=== PATIENT | male | born 1960 | race Caucasian/White ===

== ENCOUNTER 2019-05-29 23:19 | Inpatient (IN) ==
[2019-05-30 00:52] LABS: BASO# 0.03 X1000 (0.0-0.2); BASO% 0.6 % (0.0-0.8); EOS# 0.08 X1000 (0.0-0.7); EOS% 1.6 % (0.0-10.0); HEMATOCRIT 32.1 % (42.0-52.0); HEMOGLOBIN 10.6 g/dL (14.0-18.0); IMM GRAN# 0.05 X1000 (0.0-0.04); LYMPH# 0.73 X1000 (1.2-3.4); LYMPH% 14.2 % (20.5-51.1); MCH 28.2 PG (27-31); MCV 85.4 FL (81-99); MONO# 0.55 X1000 (0.11-0.59); MONO% 10.7 % (1.7-9.3); MPV 10.3 FL (7.4-10.4); NEUT# 3.71 X1000 (1.4-6.5); NEUT% 71.9 % (42.2-75.2); PLT 96 X1000 (130-400); RBC 3.76 XMIL (4.7-6.1); RDW 18.5 % (11.5-14.5); WBC 5.15 X1000 (4.8-10.8)
[2019-05-30 01:31] LABS: BILIRUBIN URINE NEGATIVE (NEGATIVE); BLOOD URINE NEGATIVE (NEGATIVE); CLARITY CLEAR (CLEAR); COLOR YELLOW; KETONE URINE NEGATIVE (NEGATIVE); LEUKOCYTES URINE NEGATIVE (NEGATIVE); NITRITE URINE NEGATIVE (NEGATIVE); PROTEIN URINE NEGATIVE (NEGATIVE); SP GRAVITY URINE 1.005; UROBILINOGEN URINE 8 mg/dL
[2019-05-30 01:34] LABS: URINE BACTERIA 4+ /HFP; URINE WBC <10 /HPF (<10)
[2019-05-30 01:35] LABS: URINE CAST NONE SEEN /LPF; URINE SOURCE CLEAN CATCH; URINE YEAST NONE SEEN /HPF
[2019-05-30 01:57] LABS: ESTIMATED GFR > 60
[2019-05-30 02:03] LABS: AGAP 11; ALBUMIN 3.2 g/dL (3.5-5.0); ALKALINE PHOSPHATASE 157 U/L (32-122); BUN 5 mg/dL (8-22); CALCIUM 8.9 mg/dL (8.8-10.2); CHLORIDE 94 mmol/L (98-107); COSMO 292; CREATININE 0.7 mg/dL (0.7-1.2); GLUCOSE 567 mg/dL (70-104); GOT 20 U/L (10-34); GPT 11 U/L (10-44); LIPASE 31 U/L (13-60); POTASSIUM 3.2 mmol/L (3.5-5.1); SODIUM 134 mmol/L (136-145); TCO2 29 mmol/L (25-35); TOTAL PROTEIN 7.5 g/dL (6.3-8.3)
[2019-05-30] MEDS ORDERED: ROCEPHIN 1 GM in NS 50 ML IV ONE (02:06)
[2019-05-30] MEDS ORDERED: NS 1,000 ML IV ONE ×3 (02:06→04:02)
[2019-05-30] MEDS ORDERED: HUMULIN R (PARKWAY) SUBQ ONE (02:06)
[2019-05-30] MEDS ORDERED: POTASSIUM CHLORIDE 10% LIQUID PO PRN (02:20)
[2019-05-30] MEDS ORDERED: POTASSIUM CHLORIDE 20 MEQ/SWI 20 MEQ/100 ML IVPB IV PRN (02:20)
[2019-05-30] MEDS ORDERED: POTASSIUM CHLORIDE 20% LIQUID PO PRN (02:20)
[2019-05-30] MEDS ORDERED: POTASSIUM CHLORIDE 40 MEQ/SWI 40 MEQ/100 ML IVPB IV PRN (02:20)
[2019-05-30] MEDS ORDERED: D50W SYRINGE IV PRN ×2 (02:20)
[2019-05-30] MEDS ORDERED: HUMULIN R 100 UNIT in NS 100 ML IV SCH (02:30)
[2019-05-30] MEDS ORDERED: NS 1,000 ML IV SCH (02:30)
[2019-05-30 03:00] LABS: BE 10.7 mmoll (-2.0-2.0); BLOOD TYPE VENOUS; PCO2(98.6) 49 mmHg (40-60); PO2(98.6) 17 mmHg (30-55); SAMPLE BLOOD; SAO2 30.4 % (40.0-85.0); pH(98.6) 7.47 (7.32-7.43)
[2019-05-30] MEDS ORDERED: ZOSYN 4.5 GM in NS 100 ML IV ONE (03:59)
--- NOTE | 2019-05-30 03:59 | PROVIDER DOCUMENTATION ---
This chart was entered by Abby Fleming Scribe, acting as scribe for Teena Jiménez MD. HPI-Abdominal Pain/GI Problem - General Chief Complaint: Abdominal Pain Stated Complaint: appendicitis PAIN Time Seen by Provider: 05/30/19 00:32 Source: patient Allergies/Adverse Reactions: Patient Allergies Allergy/AdvReac Type Severity Reaction Status Date / Time ammonia Allergy Intermediate SHORTNESS Verified 07/14/17 11:28 OF BREATH morphine Allergy Intermediate Unknown Verified 11/16/14 16:33 diazepam [From Valium] AdvReac Intermediate Unknown Verified 11/16/14 16:33 Home Medications: Home Medication List Medication Instructions Recorded Confirmed Last Taken Type Ferrous Sulfate [Iron] 325 mg PO DAILY 05/30/19 05/30/19 05/29/19 History Gabapentin 300 mg PO TID 05/30/19 05/30/19 05/29/19 History - History of Present Illness-ABD Nature of Presenting Problems: Pt is a 58 yom who presents to the ED with a complaint of abdominal pain. Pt reports that he was sitting in his chair watching tv when the pain occurred. pt states that the pain began at 6:00pm. Pt reports taking ibuprofen to relieve pain. Pt denies nausea, vomiting, and diarrhea. Pt reports chills. Abdominal Pain Onset Location: reports: RLQ Pain Radiation: reports: no radiation Quality of Pain: reports: throbbing Onset/Duration: reports: 4-6 hours ago Timing: reports: still present, changing over time Activities at Onset: reports: none Exposure to sick contacts?: No Modifying Factors: improves with: nothing Associated Symptoms: reports: denies symptoms Last BM: unsure Dark Stools Present?: reports: none noticed Rectal Bleeding: reports: none Rectal Pain: reports: none Emesis Description: reports: none Bruising or Bleeding Gums?: No Similar Symptoms Previously?: No Recently seen or treated by another doctor?: Yes Review of Systems - Adult - REVIEW OF SYSTEMS - ADULT Constitutional: reports: chills Eyes: reports: no symptoms reported Ears, Nose, Mouth & Throat: reports: no symptoms reported Cardiovascular: reports: no symptoms reported Respiratory: reports: no symptoms reported Gastrointestinal: reports: see HPI, abdominal pain (RLQ) Genitourinary: reports: no symptoms reported Musculoskeletal: reports: no symptoms reported Integumentary: reports: no symptoms reported Neurological: reports: no symptoms reported Psychiatric: reports: no symptoms reported Endocrine: reports: no symptoms reported Hematologic/Lymphatic: reports: no symptoms reported Allergic/Immunologic: reports: no symptoms reported All Other Systems: Reviewed and Negative Past History - Adult - PAST MEDICAL HISTORY-ADULT Review of Records: reports: Old Records Reviewed, Nursing Assessment Review, Medications Reviewed, Social history reviewed & non-contributory. Major Childhood Illnesses: reports: denies history Cardiovascular: reports: HTN Respiratory: reports: COPD Gastrointestinal: reports: hepatitis (b), liver disease (cirrhosis) Obstetrical/Gynecological: reports: denies history Genitourinary: reports: denies history Musculoskeletal: reports: chronic pain (back) Neurological: reports: denies history Endocrine/Immune: reports: Diabetes Other Conditions: reports: denies history - PRIOR SURGERIES/PROCEDURES Surgical/Procedure History: reports: orthopedic (extremity), back/neck - IMMUNIZATION STATUS Childhood Immunizations: See Nurse Assessment Flu Vaccine: See Nurse Assessment - FAMILY HISTORY Family History: reviewed, not pertinent - SOCIAL HISTORY Smoking: cigarettes, greater than 1 pack/day Provider spent 3-5 mins advising pt. on dangers of tobacco.: Discussed manners to quit use, and f/u contacts for add'l counseling. Substance Use: denies Alcohol Use Frequency: never Living Situation: family Physical Exam-General - PHYSICAL EXAM-ADULT Initial Vital Signs Reviewed: Yes - CONSTITUTIONAL General Appearance: appears well, alert, no apparent distress - EYES Eyes: PERRL/EOMI. negative: sclera injected, scleral icterus - HEAD, EARS, NOSE, MOUTH & THROAT HENMT: normocephalic/atraumatic, moist mucous membranes - NECK Neck: non-tender, full range of motion, supple - RESPIRATORY Respiratory: chest non-tender, lungs clear, normal breath sounds - CARDIOVASCULAR Cardiovascular: normal peripheral pulses, regular rate, rhythm. negative: bradycardia, tachycardia - GASTROINTESTINAL (ABDOMEN) Abdominal Exam: normal bowel sounds, non tender, soft, tenderness (RLQ) - LYMPHATIC Lymphatic: no adenopathy - MUSCULOSKELETAL Back Exam: normal inspection, no CVA tenderness Extremity: normal range of motion, non-tender, normal inspection - SKIN Integumentary: normal color, normal turgor, warm/dry. negative: ecchymosis, erythema - NEUROLOGIC Neurologic: grossly normal - PSYCHIATRIC Psych/Mental Status: normal mood/affect, normal thought content, normal thought process, oriented x 3 Progress - PLAN OF CARE/RESULTS Progress/Plan/Lab Results: Vital Signs - 8 hr 05/29/19 23:38 Temperature 98.2 F Pulse Rate 86 Respiratory Rate 16 Blood Pressure 151/85 O2 Sat by Pulse Oximetry 99 Orders Category Date Time Status Saline Loc NOW Care 05/29/19 23:41 Active NPO Diet 05/29/19 23:41 Active CBC WITH DIFF [HEME] Stat Lab 05/30/19 00:20 Results COMPREHENSIVE METABOLIC PANEL [CHEM] Stat Lab 05/30/19 00:20 Received LIPASE [CHEM] Stat Lab 05/30/19 00:[address] W/POSS RFLX CULT [URINALYSIS] Stat Lab 05/30/19 00:18 Uncollected Abd Pain/OB <20 weeks Stat Oth 05/29/19 23:41 Ordered Result Diagrams: 05/30/19 00:20 05/30/19 00:20 - CT/MRI 1 CT Study: Abdomen, Pelvis Impression: Abnormal, See EMR Report - CONSULTS/PCP/HOSPITALIST Notification #1 *Consult/PCP/Hospitalist*: d/w Dr Guevara Time Discussed: 03:55 Consult Disposition: Admit (Advised to admit to hospitalist at [facility]) #2 Consult: d/w Dr Leiva Time Discussed: 04:02 Consult Disposition: Admit Departure - Departure Date of Disposition Decision: 05/30/19 Time of Disposition Decision: 03:58 DIAGNOSIS: Acute appendicitis, UTI (urinary tract infection), Uncontrolled diabetes mellitus, Cirrhosis of liver Disposition: ADMITTED INPATIENT 09 Certified Medical Emergency: Emergent Condition: Stable Referrals and Follow-Ups: None,PCP [Primary Care Provider] - - Critical Care Note This patient required my direct & personal management of CC.: No Attestation - Physician/ LEA Attestation Patient care was provided by Advanced Practice Provider:: No The physician spent face to face time with patient:: Yes Advanced Practice Provider documentation review:: Supervising physician onsite and consulted in the evaluation and care of this patient. The physician did have a face to face encounter with the patient. This chart was documented by the indicated scribe, (Abby Fleming Scribe) and accurately reflects the services I performed and decisions made by me, Teena Jiménez MD, as attested by the provider's signature.
[2019-05-30 04:34] LABS: UR AMPHETAMINES QUAL NONE DETECTED (NONE DETECT); UR BARBITUATES QUAL NONE DETECTED (NONE DETECT); UR BENZODIAZEPIN QUAL NONE DETECTED (NONE DETECT); UR CANNABINOIDS QUAL NONE DETECTED (NONE DETECT); UR COCAINE QUAL NONE DETECTED (NONE DETECT); UR METHADONE QUAL NONE DETECTED (NONE DETECT); UR METHAMPHETAMINE QUAL NONE DETECTED (NONE DETECT); UR OPIATES QUAL NONE DETECTED (NONE DETECT); UR OXYCODONE QUAL NONE DETECTED (NONE DETECT); UR PCP QUAL NONE DETECTED (NONE DETECT); UR PROPOXYPHENE QUAL NONE DETECTED (NONE DETECT); UR TCA QUAL NONE DETECTED (NONE DETECT)
[2019-05-30 05:01] LABS: AGAP 20; ALBUMIN 2.8 g/dL (3.5-5.0); ALKALINE PHOSPHATASE 133 U/L (32-122); BUN 5 mg/dL (8-22); CALCIUM 7.8 mg/dL (8.8-10.2); CHLORIDE 97 mmol/L (98-107); CK PROFILE 37 U/L (24-204); COSMO 297; CREATININE 0.4 mg/dL (0.7-1.2); ESTIMATED GFR > 60; GLUCOSE 365 mg/dL (70-104); GOT 31 U/L (10-34); GPT 9 U/L (10-44); MAGNESIUM 1.6 mg/dL (1.5-2.7); PHOSPHORUS 2.6 mg/dL (2.7-4.5); POTASSIUM 3.1 mmol/L (3.5-5.1); SODIUM 143 mmol/L (136-145); TCO2 27 mmol/L (25-35); TOTAL PROTEIN 6.3 g/dL (6.3-8.3)
[2019-05-30] MEDS ORDERED: ZOFRAN IV PRN (06:29)
--- NOTE | 2019-05-30 06:47 | Diag Imaging Result Doc PS360 ---
CT ABD/PELVIS W/IV CONT ONLY - 05/30/2019 INDICATION: RLQ tenderness COMPARISON: None FINDINGS: There is mild pulmonary fibrosis in the lung bases. Heart size is normal. There is severe triple-vessel coronary artery disease. There is a TIPS shunt in the liver. This is patent. The liver is somewhat atrophic. There is significant splenomegaly. The spleen measures 20 x 8.5 cm. There is significant dilation of the splenic vein, superior mesenteric vein, and main portal vein. This indicates portal venous hypertension. There is mild constipation throughout the colon. The appendix is top normal in size measuring up to 7.5 mm. There is normal-appearing contents within the appendix. There is nonspecific edema throughout the mesentery. There are a few cysts in the kidneys bilaterally. Urinary bladder, prostate, and rectum are normal. There are laminectomy and fusion changes in the lumbar spine at L5-S1. No acute bony lesions. IMPRESSION: 1. Borderline size of the appendix that is nonspecific. Doubtful to represent appendicitis. 2. Cirrhosis, portal hypertension, splenomegaly. 3. Constipation. This exam was performed using automated exposure control, adjustment of mA or kV according to patient size, and/or use of iterative reconstruction technique Electronically signed by Harshal Olea 05/30/2019 6:45 AM
--- NOTE | 2019-05-30 06:53 | HISTORY AND PHYSICAL ---
PRIMARY CARE PROVIDER: Unknown. CHIEF COMPLAINT: Abdominal pain, mostly in the right lower quadrant. HISTORY OF PRESENTING ILLNESS: A 58-year-old male with a history of diabetes mellitus type 2, cirrhosis, hepatitis B and C, who had presented to the emergency department with complaint of right lower quadrant abdominal pain for the past day or so. He initially was seen at [facility]. He had imaging done, which did show the possibility of appendicitis. His case was discussed with General Surgery, who recommended the patient be transferred to [facility] for further evaluation and management. At the time of my examination, the patient denied any headache, fever, chills, chest pain, shortness of breath, but complained of abdominal pain. PAST MEDICAL HISTORY: Includes diabetes mellitus type 2, cirrhosis, hepatitic B and C. PAST SURGICAL HISTORY: TIPS procedure, back surgery, left knee surgery. ALLERGIES: Ammonia, morphine, diazepam. CURRENT MEDICATIONS: He does not recall current medications. It shows that he is on ferrous sulfate 325 mg p.o. daily, and gabapentin 300 mg p.o. t.i.d. Other medications, nursing staff will reconcile. SOCIAL HISTORY: A 40+ pack-year history of smoking. Denies any history of alcohol or illicit drug use. FAMILY HISTORY: Positive for coronary disease in father. REVIEW OF SYSTEMS: A 14-point review of systems is as in HPI. Other systems negative. PHYSICAL EXAMINATION: GENERAL: Cooperative, friendly male. He is resting more comfortably now. VITAL SIGNS: Temperature 98 degrees, pulse 71, respirations 18, blood pressure 111/57. HEENT: Atraumatic, normocephalic. Extraocular movements intact. PERRLA. NECK: No masses. CHEST: Clear to auscultation. CARDIOVASCULAR: Regular rate and rhythm. ABDOMEN: Soft. Positive bowel sounds. Some mild lower quadrant tenderness. EXTREMITIES: No edema. NEUROLOGIC: He is awake, alert, oriented x3. GENITOURINARY: No bladder distention. SKIN: Warm. LABORATORIES AND STUDIES: WBC 5.15, hemoglobin 10.6, hematocrit 32.1, platelets 96,000. Sodium 143, potassium 3.1, chloride 97, CO2 is 27, BUN is 5, creatinine 0.4, glucose is 365. Urine nitrite negative. ASSESSMENT: A 58-year-old male who initially presented to [facility] with complaint of right lower quadrant abdominal pain. He was evaluated there. He had imaging done, which did show the possibility of acute appendicitis. His case was discussed with General Surgery, who recommended that the patient be transferred to [facility] for further evaluation and management. 1. Abdominal pain. 2. Suspected acute appendicitis. 3. Cirrhosis. 4. Hepatitis B and C. 5. Diabetes mellitus type 2 with hyperglycemia. 6. Mild hypokalemia. PLAN: 1. Will admit the patient to medical floor with telemetry. 2. Will keep the patient n.p.o. Continue with pain control. 3. General Surgery was already consulted. 4. Will obtain his records regarding his cirrhosis and hepatitis B and C. 5. Will put the patient on a sliding scale insulin regimen, and monitor blood glucose closely. 6. Will put the patient on DVT prophylaxis with SCDs. 7. Will continue to follow and reassess and make further recommendation based on the patient's clinical course. cc: Jason Leiva MD MTDD
[2019-05-30] MEDS: NS 1,000 ML IV SCH ×2 (07:06→20:57)
--- NOTE | 2019-05-30 08:11 | GENERAL SURGERY CONSULTATION ---
DATE: 05/30/2019 REQUESTING PHYSICIAN: Emergency Department. REASON FOR CONSULTATION: Possible appendicitis. HISTORY OF PRESENT ILLNESS: A 58-year-old gentleman with history of diabetes mellitus type 2, cirrhosis with hepatitis B and C, who complained of abdominal pain in the right lower quadrant, and seen in the emergency department. He had a CT scan that was very equivocal for appendicitis. He had no left shift. He has had significant medical issues with a history of TIPS procedure for cirrhosis. Given his equivocal findings and his medical comorbidities, I requested that the patient be transferred from [facility] where he was seen initially to [facility] to be admitted by the hospitalist service. He is still complaining of some degree of abdominal pain, but otherwise he is doing okay. PAST MEDICAL HISTORY: 1. Diabetes mellitus type 2. 2. Cirrhosis. 3. Hepatitis B. 4. Hepatitis C. PAST SURGICAL HISTORY: 1. TIPS procedure. 2. Back surgery. 3. Left knee surgery. ALLERGIES: Morphine and diazepam. CURRENT MEDICATIONS: Reviewed. SOCIAL HISTORY: Current smoker. FAMILY HISTORY: Positive for coronary artery disease. REVIEW OF SYSTEMS: Full 14 systems reviewed and negative except as specified in HPI. PHYSICAL EXAMINATION: Vital Signs: Patient is currently afebrile. Vital signs are stable. General: No acute distress. Alert and interactive male looks stated age. HEENT: Normocephalic, atraumatic. Pupils equal, round, and reactive to light. Mucous membranes moist. Oropharynx benign. Neck: Supple. Trachea midline. Cardiovascular: Regular rate and rhythm. Lungs: Grossly clear. Abdomen: Soft. There is only minimal discomfort in the right lower quadrant. No peritoneal signs. No guarding. Extremities: Moves all extremities. Neurologic: Grossly intact. Skin: No signs of jaundice. Vascular: All extremities perfused. LABORATORY: White blood count is normal. No left shift. Platelet count is 96,000. Bilirubin is 1.7. Albumin is 2.8. CT scan independently reviewed and radiology report reviewed as noted above. ASSESSMENT AND PLAN: A 58-year-old gentleman with abdominal pain. Abdominal pain. At this time, I do not suspect he has appendicitis. I think he would be prohibitively high risk for surgery given his cirrhosis and his TIPS procedure. He does not have a left shift. He does not have a leukocytosis so I have recommend right now to just monitor and put him on a clear liquid diet. I have given him IV antibiotics just in case. Otherwise, we will continue to follow him while he is in the hospital. I appreciate the consult. cc: Brock Guevara MD
[2019-05-30] MEDS: ZOSYN 3.375 GM in NS 50 ML IV SCH ×2 (10:25→16:03)
[2019-05-30] MEDS ORDERED: LANTUS INSULIN SUBQ ONE (10:52)
[2019-05-30 11:25] LABS: HEMOGLOBIN A1C 10.8 % (4.8-6.0)
--- NOTE | 2019-05-30 11:48 | EKG Report ---
Test Performed on : 05/30/2019 11:43:31 AM Test Reason : Baseline EKG. Triple vessel disease on CAT scan. Blood Pressure : / mmHG Vent. Rate : 065 BPM Atrial Rate : 065 BPM P-R Int : 222 ms QRS Dur : 100 ms QT Int : 460 ms P-R-T Axes : 050 049 112 degrees QTc Int : 478 ms Sinus rhythm. with 1st degree AV block. Possible Inferior infarct , age undetermined T wave abnormality, consider lateral ischemia Abnormal ECG When compared with ECG of 16-NOV-2014 22:09, FL interval has increased Borderline criteria for Inferior infarct are now present Non-specific change in ST segment in Anterior leads Confirmed by Rico RIVERA, Zbigniew Duval ([id number]) on 05/31/2019 8:59:39 AM
[2019-05-30] MEDS ORDERED: INSULIN PEN NEEDLES ONE (12:01)
--- NOTE | 2019-05-30 15:19 | PROGRESS NOTE ---
DATE: 05/30/2019 INTERVAL HISTORY: He was admitted for right lower quadrant pain. However, surgical team did not think he had appendicitis. He is on IV antibiotics. SUBJECTIVE: He is feeling better. He states his abdominal pain has almost resolved. He is denying any nausea or vomiting. He denies any abdominal pain, diarrhea or constipation at the moment. He denies known history of coronary artery disease. He states that he is only taking metformin at home for his diabetes. VITALS: Temperature 98.5 degrees, pulse respiratory 18, blood pressure 108/56. He is saturating 100% on room air. PHYSICAL EXAMINATION: General: Does not appear in acute distress. HEENT: Oral cavity is moist. Lungs: Air entry bilaterally equal. No wheeze, rhonchi, crackles. Cardiovascular: S1, S2 normal. No murmur or gallop. Abdomen: Soft. No tender. I could not really appreciate splenomegaly on my limited examination. Active bowel sounds. No rebound or rigidity. Extremity: No lower extremity edema. Neurologic: He is alert and oriented x3. LABS: Suggestive of no leukocytosis, normocytic anemia, chronic thrombocytopenia. ABG though it was a venous blood gas, it did not have any acidosis. His bicarbonate level was in fact elevated. Normal kidney function, hyperglycemia, uncontrolled diabetes. He has elevated total bilirubin. Urine glucose was positive. Acetone levels were unremarkable. Urine culture is pending. No new imaging. ASSESSMENT AND PLAN: 1. Right lower quadrant abdominal pain of unclear etiology, though he did have marked hyperglycemia with blood glucose of 567 on admission. He did not have all the features of diabetic ketoacidosis, which could contribute to abdominal cramps. I will continue intravenous antibiotics and surgical team is currently planning conservative management since the evidence of appendicitis is minimal. 2. Uncontrolled type 2 diabetes mellitus with hemoglobin A1c more than 10. He would likely need to be on insulin, now. Considering cost issues, I will start him on Humulin 70/30, and we will closely monitor his blood sugars. 3. History of chronic liver disease, cirrhosis status post TIPS. He has resultant elevated bilirubin and chronic thrombocytopenia. 4. Others: I will replete his potassium for hypokalemia and follow up with BMP tomorrow morning. I will resume his gabapentin for chronic pain. DISPOSITION: I will monitor patient inside the hospital for another day as I titrate his insulin as well as make sure he does not have recurrence of abdominal pain. Plan of care discussed with him. His questions were answered. cc: Jonnathan Ward MD
[2019-05-30] MEDS: HUMALOG SUBQ SCH ×2 (15:58→18:21)
[2019-05-30] MEDS: HUMULIN 70/30 SUBQ SCH (16:00)
[2019-05-30] MEDS: KLOR-CON PO SCH ×2 (16:01→18:13)
[2019-05-30] MEDS: NEURONTIN PO SCH ×2 (16:01→18:12)
[2019-05-30] MEDS: MIRALAX PO SCH (16:23)
[2019-05-30 16:25] LABS: AGAP 8; BUN 4 mg/dL (8-22); CALCIUM 7.2 mg/dL (8.8-10.2); CHLORIDE 101 mmol/L (98-107); COSMO 278; CREATININE 0.6 mg/dL (0.7-1.2); ESTIMATED GFR > 60; GLUCOSE 255 mg/dL (70-104); SODIUM 136 mmol/L (136-145); TCO2 27 mmol/L (25-35)
[2019-05-30] MEDS ORDERED: KLOR-CON PO SCH (17:30)
[2019-05-30] MEDS: MAGNESIUM SULFATE 2 GM/S.W.I. 2 GM/50 ML IVPB IV SCH (18:33)
[2019-05-30] MEDS ORDERED: KLOR-CON PO ONE (22:00)
[2019-05-31] MEDS: ZOSYN 3.375 GM in NS 50 ML IV SCH ×3 (00:34→10:15)
[2019-05-31] MEDS: HUMALOG SUBQ SCH ×3 (00:34→11:13)
[2019-05-31] MEDS: HUMULIN 70/30 SUBQ SCH ×2 (00:34→08:36)
[2019-05-31] MEDS: MAGNESIUM SULFATE 2 GM/S.W.I. 2 GM/50 ML IVPB IV SCH (00:35)
--- NOTE | 2019-05-31 06:28 | GENERAL SURGERY PROGRESS NOTE ---
DATE: 05/31/2019 SUBJECTIVE: Patient seems to be doing okay. No abdominal pain. OBJECTIVE: Vital Signs: Patient is currently afebrile. His vital signs are stable. General: No acute distress. HEENT: Normocephalic, atraumatic. Pupils equal, round, and reactive to light. Mucous membranes moist. Oropharynx benign. Neck: Supple. Trachea midline. Cardiovascular: Regular rate and rhythm. Lungs: Grossly clear. Abdomen: Soft, nontender, and nondistended. Extremities: Moves all extremities. Neurologic: Grossly intact. Skin: No signs of jaundice. Vascular: All extremities perfused. LABORATORY: None this morning as of yet. ASSESSMENT AND PLAN: A 58-year-old gentleman with cirrhosis with possible appendicitis. 1. Possible appendicitis. At this time, I do not think he has it. He has clinically done pretty well over the course of 24 hours from a surgical point of view. No immediate plans for surgical intervention. If okay with the hospitalist, he can likely be discharged. 2. Cirrhosis. At this time, he probably needs to follow up with the physician who is managing his cirrhosis. cc: Brock Guevara MD
[2019-05-31] MEDS: NS 1,000 ML IV SCH (06:47)
--- NOTE | 2019-05-31 07:20 | EKG Report ---
Test Performed on : 05/31/2019 06:53:36 AM Test Reason : Follow up TWI in lateral leads Blood Pressure : / mmHG Vent. Rate : 071 BPM Atrial Rate : 071 BPM P-R Int : 202 ms QRS Dur : 086 ms QT Int : 436 ms P-R-T Axes : 046 050 100 degrees QTc Int : 473 ms Normal sinus rhythm. Possible Inferior infarct (cited on or before 30-MAY-2019) Abnormal ECG When compared with ECG of 30-MAY-2019 11:43, (Unconfirmed) No significant change was found Confirmed by Zbigniew Gómez MD ([id number]) on 05/31/2019 9:01:02 AM
[2019-05-31 07:23] LABS: BASO# 0.01 X1000 (0.0-0.2); BASO% 0.3 % (0.0-0.8); EOS# 0.09 X1000 (0.0-0.7); EOS% 2.3 % (0.0-10.0); HEMATOCRIT 31.2 % (42.0-52.0); HEMOGLOBIN 9.7 g/dL (14.0-18.0); IMM GRAN# 0.02 X1000 (0.0-0.04); IMM GRAN% 0.5 % (0.0-0.5); LYMPH# 0.73 X1000 (1.2-3.4); LYMPH% 18.8 % (20.5-51.1); MCHC 31.1 g/dL (33-37); MCV 90.2 FL (81-99); MONO# 0.38 X1000 (0.11-0.59); MONO% 9.8 % (1.7-9.3); MPV 10.7 FL (7.4-10.4); NEUT# 2.66 X1000 (1.4-6.5); NEUT% 68.3 % (42.2-75.2); PLT 75 X1000 (130-400); RBC 3.46 XMIL (4.7-6.1); RDW 19.3 % (11.5-14.5); WBC 3.89 X1000 (4.8-10.8)
[2019-05-31 07:42] LABS: AGAP 8; BUN 5 mg/dL (8-22); CALCIUM 7.8 mg/dL (8.8-10.2); CHLORIDE 105 mmol/L (98-107); COSMO 282; CREATININE 0.7 mg/dL (0.7-1.2); ESTIMATED GFR > 60; GLUCOSE 231 mg/dL (70-104); POTASSIUM 4.2 mmol/L (3.5-5.1); SODIUM 139 mmol/L (136-145); TCO2 26 mmol/L (25-35)
[2019-05-31] MEDS: NEURONTIN PO SCH (08:35)
[2019-05-31] MEDS: MIRALAX PO SCH (08:35)
[2019-05-31] MEDS ORDERED: FERROUS SULFATE PO SCH (09:00)
[2019-05-31] MEDS ORDERED: LANTUS INSULIN SUBQ SCH (09:00)
[2019-05-31 12:03] VITALS: BP 111/62
[2019-05-31] MEDS ORDERED: HUMULIN 70/30 SUBQ SCH (17:00)
[2019-05-31] MEDS ORDERED: GLUCOPHAGE PO SCH (17:00)
--- NOTE | 2019-06-01 07:58 | DISCHARGE SUMMARY ---
ADMISSION DATE: 05/30/2019 DISCHARGE DATE: 05/31/2019 DISCHARGE DISPOSITION: Home. DISCHARGE CONDITION: Hemodynamically stable. He denies any nausea, vomiting, or abdominal cramps. His blood sugars are reasonably well controlled on insulin NPH. He was also started back on his metformin. DISCHARGE DIAGNOSES: 1. Uncontrolled type 2 diabetes mellitus with hyperglycemia. 2. Right lower quadrant abdominal pain of unclear etiology, possibly related to uncontrolled diabetes and hyperglycemia. OTHER DIAGNOSES: 1. History of liver cirrhosis. 2. History of IPS procedure. 3. History of chronic thrombocytopenia. 4. Unclear history of chronic hepatitis B and hepatitis C. DISCHARGE MEDICATIONS: 1. Gabapentin 300 mg t.i.d. 2. Ferrous sulfate 325 mg daily. 3. Metformin 500 mg b.i.d. with meals, which was patient's home medications. 4. Insulin Humulin 70 30, 12 units b.i.d. with meals, 1 month supply with 1 refill having been prescribed. PHYSICAL EXAMINATION: Vitals: At time of discharge, temperature 99.1 degrees, pulse 75, respiratory 16, blood pressure 119/65 and saturating 95% room air. General: On physical examination, he is not in acute distress. HEENT: Oral cavity is moist. Lungs: Air entry bilaterally equal. No wheezing, rhonchi or crackles. Heart: S1 and S2 normal. No murmurs or gallops. Abdomen: Soft and nontender. No active bowel sounds. No hepatosplenomegaly. Extremities: No lower extremity edema. Neurologic: He is alert and oriented x3. LABORATORY: Labs at the time of discharge shows WBC 3.8, hemoglobin 9.7, and platelet 75,000, potassium 4.2, which is improved from 3.2 on presentation, BUN 5, creatinine 0.7, blood glucose of 263, calcium 7.8, hemoglobin A1c 10.8. Urine toxicology was negative. Urinalysis had glycosuria, negative for WBC, though the urine culture had gram-positive cocci. He was not complaining of any burning or increased frequency of urination. HOSPITAL COURSE SUMMARY: Mr. Dorado is a 58 year old man who initially presented on 05/30/2019 with chief complaint of right lower quadrant abdominal pain. He had prior history of diabetes mellitus type 2 and cirrhosis. In the emergency room, CAT scan of the abdomen and pelvis was performed which had a slight prominence of the appendix without any appendicitis. However, considering his significant abdominal pain, he was admitted for further management. He was started on IV fluids and prophylactic IV antibiotics. He was also noted to have a blood glucose of 567 on presentation, and was started on subcutaneous insulin. With IV fluids, IV antibiotics, and insulin, he had remarkable improvement in his symptoms. He was symptom-free, and he was monitored for another 24 hours but his symptoms did not recur so antibiotics were discontinued. He was started on NPH 70/30 insulin as well, along with his metformin which he was tolerating well. Insulin education was provided to him, and it was decided to discharge him with outpatient follow up with his regular physician. Noticeably, he did have bacteria in his urine. However, he did not have any increased frequency of urination, burning, any fever or leukocytosis to suggest urinary tract infections. It was treated as asymptomatic bacteriuria. TIME SPENT: At the time of discharge, more than 30 minutes spent in taking care of this patient. Discharge Instructions were explained to him in detail. cc: Jonnathan Ward MD
== END 2019-05-31 13:09 | disposition home health service (06) | DRG 639 ==
LOC: P.ED 23:19 → SUATTDRO 05-30 04:56 → 4N 05-30 04:56
PROVIDERS: ATTEND Internal Medicine